=== PATIENT | female | born 1980 | race Caucasian/White ===

== ENCOUNTER → 2021-02-25 | Outpatient (CLI) | payer BC ==
[~2021-02-25] MED LIST: ATIVAN1 MG PO; BENADRYL 25MG C25 MG PO; BUSPIRONE HCL5 MG PO; DECADRON4 MG PO; METOPROLOL SUCC25 MG PO; NURTEC ODT75 MG SL; PHENERGAN 25 MG25 M1 PO; ROBAXIN 750 MG750 MG PO; TIZANIDINE HCL4 MG PO; TROKENDI XR100 MG PO; VENLAFAXINE H37.5 M1 PO; VENLAFAXINE H37.5 M2 PO; ZOFRAN ODT 4 MG4 MG SL; ZOMIG5 MG PO
[2021-02-25 09:45] LABS: HEMOGLOBIN 13.8 gm/dl (12.3-15.3); RED BLOOD COUNT 4.35 M/UL (4.00-5.10); WHITE BLOOD COUNT 6.4 K/UL (4.5-11.0)
[2021-02-25 10:00] LABS: BUN/CREATININE RATIO 12 (0-10)
== END ==
LOC: EDSTATUS 09:00 → OPSV2 09:00
PROVIDERS: Orthopaedic Surgery
DX: Z01.818 Encounter for other preprocedural examination (principal); M54.12 Radiculopathy, cervical region; I10 Essential (primary) hypertension
CPT/HCPCS: 36415; 71046; 80048; 85027; 87081; 87086; 93005

== ENCOUNTER → 2021-03-12 | Outpatient (CLI) | payer BC ==
[2021-03-12 08:52] LABS: BUN/CREATININE RATIO 16 (0-10)
== END ==
LOC: LAB 07:53
PROVIDERS: Orthopaedic Surgery
DX: Z01.812 Encounter for preprocedural laboratory examination (principal); M54.12 Radiculopathy, cervical region; G95.9 Disease of spinal cord, unspecified; I10 Essential (primary) hypertension
CPT/HCPCS: 36415; 80048; 85610; 85730; 86850; 86900; 86901

== ENCOUNTER 2021-03-13 06:13 | Day surgery (SDC) | payer BC ==
[~2021-03-13] VITALS: Ht 180.3 cm; Wt 102.1 kg
[~2021-03-13 06:13] MED LIST changes: -ATIVAN1 MG PO; -DECADRON4 MG PO; -VENLAFAXINE H37.5 M1 PO
[2021-03-13 16:38] LABS: RED BLOOD COUNT 4.11 M/UL (4.00-5.10); WHITE BLOOD COUNT 9.7 K/UL (4.5-11.0)
[2021-03-13 16:52] LABS: BUN/CREATININE RATIO 17 (0-10)
[2021-03-14 03:41] LABS: HEMOGLOBIN 11.8 gm/dl (12.3-15.3); RED BLOOD COUNT 3.95 M/UL (4.00-5.10); WHITE BLOOD COUNT 11.5 K/UL (4.5-11.0)
[2021-03-14 04:05] LABS: BUN/CREATININE RATIO 15 (0-10)
== END 2021-03-14 10:06 | disposition home or self-care (01) ==
LOC: OR 06:13 → CCU 15:45 → OR 03-14 10:06
PROVIDERS: Orthopaedic Surgery
DX: M54.12 Radiculopathy, cervical region (principal); M43.02 Spondylolysis, cervical region; M48.02 Spinal stenosis, cervical region; F41.9 Anxiety disorder, unspecified; G43.109 Migraine with aura, not intractable, without status migrainosus; Z87.891 Personal history of nicotine dependence; Z20.822 Contact with and (suspected) exposure to COVID-19; R60.9 Edema, unspecified; M79.89 Other specified soft tissue disorders; I42.9 Cardiomyopathy, unspecified; Z98.51 Tubal ligation status
CPT/HCPCS: 36415; 72040; 72050; 76000; 80048; 80053; 85027; C1713; C1762; J0690; J1100; J1170; J2001; J2250; J2370; J2405; J2704; J2710; J3010; J7030; J7120

== ENCOUNTER 2021-03-16 11:28 | Observation (INO) | payer BC ==
[~2021-03-16] VITALS: Ht 180.3 cm; Wt 102.1 kg
[2021-03-16 13:09] LABS: HEMOGLOBIN 12.5 gm/dl (12.3-15.3); RED BLOOD COUNT 3.95 M/UL (4.00-5.10); WHITE BLOOD COUNT 8.9 K/UL (4.5-11.0)
[2021-03-16 13:37] LABS: BUN/CREATININE RATIO 10 (0-10)
[2021-03-16] MEDS ORDERED: VENLAFAXINE H37.5 M1 PO (20:08)
[2021-03-17 05:14] LABS: HEMOGLOBIN 11.8 gm/dl (12.3-15.3); RED BLOOD COUNT 3.79 M/UL (4.00-5.10); WHITE BLOOD COUNT 8.7 K/UL (4.5-11.0)
[2021-03-17 05:30] LABS: BUN/CREATININE RATIO 15 (0-10)
[2021-03-17] MEDS ORDERED: DECADRON4 MG PO ×2 (09:44→09:48)
[2021-03-17] MEDS ORDERED: ATIVAN1 MG PO (10:29)
== END 2021-03-17 10:30 | disposition home or self-care (01) ==
LOC: ER1 11:28 → CDU 16:23 → CCU 16:23
PROVIDERS: Emergency Medicine; ADMIT Internal Medicine
DX: M96.89 Other intraoperative and postprocedural complications and disorders of the musculoskeletal system (principal); R13.19 Other dysphagia; R06.02 Shortness of breath; R59.0 Localized enlarged lymph nodes; Z20.822 Contact with and (suspected) exposure to COVID-19; Z90.89 Acquired absence of other organs; Z98.51 Tubal ligation status; Z98.1 Arthrodesis status
CPT/HCPCS: 36415; 70491; 80048; 80053; 85025; 85027; 85652; 86140; 87040; 96374; 96375; 96376; 99284; G0378; J1100; J2270; J2405; J2543; J3370; J7030; Q9967; U0002

== ENCOUNTER → 2022-03-17 | Outpatient (CLI) | payer BC ==
[~2022-03-17] MED LIST changes: +ATIVAN1 MG PO; +DECADRON4 MG PO; +VENLAFAXINE H37.5 M1 PO
== END ==
LOC: KOH-I 12:56
DX: M51.16 Intervertebral disc disorders with radiculopathy, lumbar region (principal); M51.37 Other intervertebral disc degeneration, lumbosacral region; M48.061 Spinal stenosis, lumbar region without neurogenic claudication; M48.07 Spinal stenosis, lumbosacral region
CPT/HCPCS: 72148